=== PATIENT | female | born 1950 | race Caucasian/White ===

== ENCOUNTER 2021-03-21 09:14 | Emergency (ER) | payer MEDICARE, BC, SELFPAY ==
--- NOTE | 2021-03-21 09:18 | ED.LOWEXIN ---
HPI - Extremity Injury (Lower) General Chief Complaint: Extremity Injury, Lower Stated Complaint: Pain on right side near the Hip Time Seen by Provider: 03/21/21 09:18 Source: patient and RN notes reviewed History of Present Illness HPI Narrative: Patient is a 70-year-old female who presents the urgent care with complaints of pain to the posterior right hip. Patient states is been ongoing for approximately 1 month on and off. Patient states it typically feels better as she goes throughout the day. States that her massage the area last night and now she has some radiation to the groin. Patient states that she pulled her left oblique muscle several years ago and this feels the same way . Patient states at that time she did follow-up with physical therapy and it improved. Patient states that [id number] pain medication makes her woozy with stomach pains that she has not taken anything [id number] for pain. Patient states she is used ice and heat. States that she does a lot of gardening and believes the repetitive motion has caused increased pain. Denies of any known trauma or fall. No other acute complaints. Patient appears to be in visible pain. Otherwise no acute distress noted. Patient aware of the plan of care. Some parts of this dictation were generated by voice recognition software and may contain typographical and/or grammatical inaccuracies. Related Data Home Medications Medication Instructions Recorded Confirmed alprazolam 0.25 mg PO TID PRN 03/21/21 03/21/21 estradiol 1 mg PO DAILY 03/21/21 03/21/21 meclizine 25 mg PO TID PRN 03/21/21 03/21/21 rosuvastatin 10 mg PO DAILY 03/21/21 03/21/21 Allergies Allergy/AdvReac Type Severity Reaction Status Date / Time No Known Allergies Allergy Verified 03/21/21 09:21 Review of Systems Review of Systems: CONSTITUTIONAL: Denies fever, chills, or sweats. EYES: Denies visual changes, redness, or discharge. ENT: Denies rhinorrhea, congestion, sore throat, or otalgia. CARDIOVASCULAR: Denies chest pain, palpitations, or edema. RESPIRATORY: Denies cough or dyspnea. GASTROINTESTINAL: Denies abdominal pain, nausea, vomiting, or diarrhea. GENITOURINARY: Denies dysuria or hematuria. SKIN: Denies rash or itching. MUSCULOSKELETAL: Reports of posterior right hip/lower back pain NEUROLOGIC: Denies headache, numbness, or weakness. All other systems reviewed are negative, except as documented in HPI. PMFSH Comments At the time of my signature, I reviewed and agree with the nursing past medical, surgical, social, and family history. There is no relevant family history pertinent to the patient complaint. Exam Narrative: GENERAL: This is a well-nourished, well-developed patient, in no apparent distress. HEAD: normocephalic, atraumatic. EYES: PERRL. Sclera clear/white. Vision is grossly intact. EARS: External ears normal NOSE: External nose normal with no obvious nasal discharge, nares without redness, no rhinorrhea. THROAT: Mucous membranes moist NECK: Neck supple CARDIOVASCULAR: Regular rate and rhythm without murmurs, gallops, or rubs. RESPIRATORY: Clear to auscultation. Breath sounds equal bilaterally. No wheezes, rales, or rhonchi. NEURO: awake, alert, and oriented to person, place and time. There were no obvious focal neurologic abnormalities. EXTREMITIES: No clubbing, cyanosis, or edema. Range of motion to right lower extremity within normal limits BACK: Negative lumbar tenderness. Negative bilateral SLE. Moderate posterior right oblique and right piriformis tenderness Course Vital Signs Vital signs: Vital Signs Temperature 97.1 F L 03/21/21 09:22 Pulse Rate 90 03/21/21 09:22 Respiratory Rate 20 03/21/21 09:22 Blood Pressure 150/92 H 03/21/21 09:22 Pulse Oximetry 100 03/21/21 09:22 Temperature 97.1 F L 03/21/21 09:31 Pulse Rate 90 03/21/21 09:31 Respiratory Rate 20 03/21/21 09:31 Blood Pressure 150/92 H 03/21/21 09:31 P
[2021-03-21 09:22] VITALS: BP 150/92; PULSE 90; RESP 20; TEMP 36.2; O2SAT 100
[2021-03-21 09:31] VITALS: BP 150/92; PULSE 90; RESP 20; TEMP 36.2; O2SAT 100
== END 2021-03-21 09:40 | disposition home or self-care (01) ==
PROVIDERS: Emergency Provider Nurse Practitioner Family
DX: G57.01 Lesion of sciatic nerve, right lower limb (principal)
CPT/HCPCS: 99213; G0463